=== PATIENT | female | born 1960 | race Two or more races ===

== ENCOUNTER 2016-06-18 10:59 | Inpatient (IN) | payer OTHER ==
[2016-06-18 11:51] VITALS: BMI 35.6
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
[2016-06-18] MEDS ORDERED: MAGNESIUM HYDROX 2400MG/30ML ORAL SUSPENSION 30 ML CUP PO PRN (15:20)
[2016-06-18] MEDS ORDERED: P-EPHED 60MG/TRIPROLIDI 2.5MG TABLET PO PRN (15:20)
[2016-06-18] MEDS ORDERED: IBUPROFEN 400 MG TABLET (FP) PO PRN (15:20)
[2016-06-18] MEDS ORDERED: LOPERAMIDE HCL 2 MG CAPSULE PO PRN (15:20)
[2016-06-18] MEDS ORDERED: MAGNESIUM CITRATE 300 ML BOTTLE PO PRN (15:20)
[2016-06-18] MEDS ORDERED: hydrOXYzine PAMOATE 25 MG CAPSULE (FP) PO PRN (15:20)
[2016-06-18] MEDS ORDERED: MAG HYDROX/AL HYDROX/SIMETH 30 ML UNIT-DOSE CUP PO PRN (15:20)
[2016-06-18] MEDS ORDERED: MENTHOL/PHENOL 1 EACH UD MM PRN (15:20)
[2016-06-18] MEDS ORDERED: guaiFENesin/D-METHORPHAN HB 10 ML UNIT-DOSE CUPS PO PRN (15:20)
[2016-06-18] MEDS ORDERED: diphenhydrAMINE HCL 50 MG CAPSULE PO PRN (15:20)
[2016-06-18] MEDS ORDERED: ALBUTEROL SO4 6.7 GM HFA INHALER IH PRN (15:22)
[2016-06-18] MEDS ORDERED: METHADONE HCL 10 MG TABLET PO ONE (15:23)
[2016-06-18] MEDS ORDERED: METHADONE 80 MG, METHADONE 30 MG PO ONE (16:00)
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
[2016-06-18] MEDS: LISINOPRIL 20 MG TABLET (FP) PO SCH (17:25)
[2016-06-18] MEDS: THIAMINE HCL 100 MG TABLET (FP) PO SCH (21:41)
[2016-06-18] MEDS: NICOTINE 14 MG/24 HOURS TOPICAL PATCH TD SCH (21:42)
[2016-06-18] MEDS: QUEtiapine FUMARATE 400 MG TABLET PO SCH (22:35)
[2016-06-19] MEDS ORDERED: METHADONE HCL 40 MG DISPERSABLE TABLET ONE (05:14)
[2016-06-19] MEDS ORDERED: METHADONE HCL 10 MG TABLET ONE (05:14)
[2016-06-19] MEDS ORDERED: METHADONE HCL 10 MG TABLET PO SCH (06:00)
[2016-06-19] MEDS: METHADONE 80 MG, METHADONE 30 MG PO SCH (06:17)
[2016-06-19 09:57] LABS: MCH 29.1 pg (25.7-33.7); MCHC 32.7 g/dl (32.0-36.0); MEAN CELL VOLUME 88.9 fl (80-96); MEAN PLT VOLUME 10.2 fl (7.5-11.1); PLATELET COUNT 187 K/MM3 (134-434); RDW 15.9 % (11.6-15.6); WHITE BLOOD COUNT 7.6 K/mm3 (4.0-10.0)
[2016-06-19] MEDS: NICOTINE 14 MG/24 HOURS TOPICAL PATCH TD SCH (10:17)
[2016-06-19] MEDS: QUEtiapine FUMARATE 400 MG TABLET PO SCH ×2 (10:17→21:21)
[2016-06-19] MEDS: LISINOPRIL 20 MG TABLET (FP) PO SCH (10:17)
[2016-06-19] MEDS: PRENATAL VITAMINS W/ FOLIC ACID TABLET (FP) PO SCH (10:17)
[2016-06-19 10:37] LABS: ALBUMIN 3.3 g/dl (3.4-5.0); BILIRUBIN,TOTAL 0.2 mg/dL (0.2-1.0); CALCIUM 8.7 mg/dL (8.5-10.1); CREATININE 1.4 mg/dL (0.55-1.02); TOT PROT 6.6 g/dl (6.4-8.2)
[2016-06-19 15:29] LABS: SICKLE CELL SCREEN NEGATIVE (NEGATIVE)
[2016-06-19] MEDS: ACETAMINOPHEN 325 MG TABLET (FP) PO PRN (19:52)
[2016-06-19] MEDS: THIAMINE HCL 100 MG TABLET (FP) PO SCH (21:21)
--- NOTE | 2016-06-19 23:39 | EKG ---
Test Reason : Blood Pressure : / mmHG Vent. Rate : 077 BPM Atrial Rate : 077 BPM P-R Int : 124 ms QRS Dur : 076 ms QT Int : 432 ms P-R-T Axes : 050 -01 034 degrees QTc Int : 488 ms NORMAL SINUS RHYTHM POSSIBLE LEFT ATRIAL ENLARGEMENT CANNOT RULE OUT ANTERIOR INFARCT , AGE UNDETERMINED ABNORMAL ECG WHEN COMPARED WITH ECG OF 18-MAY-2004 06:53, NO SIGNIFICANT CHANGE WAS FOUND Confirmed by JAY PAEZ, MCKENZIE ([id number]) on 06/19/2016 11:38:39 PM Referred By: Confirmed By:MCKENZIE THOMPSON MD
[2016-06-20] MEDS ORDERED: METHADONE HCL 10 MG TABLET ONE (03:19)
[2016-06-20] MEDS ORDERED: METHADONE HCL 40 MG DISPERSABLE TABLET ONE (03:19)
[2016-06-20] MEDS: METHADONE 80 MG, METHADONE 30 MG PO SCH (07:10)
[2016-06-20] MEDS: PRENATAL VITAMINS W/ FOLIC ACID TABLET (FP) PO SCH (10:24)
[2016-06-20] MEDS: LISINOPRIL 20 MG TABLET (FP) PO SCH (10:24)
[2016-06-20] MEDS: QUEtiapine FUMARATE 400 MG TABLET PO SCH ×2 (10:24→21:41)
[2016-06-20] MEDS: NICOTINE 14 MG/24 HOURS TOPICAL PATCH TD SCH (10:25)
[2016-06-20] MEDS: TRIAMTERENE AND HCTZ - 37.5 MG/25 MG CAPSULE PO SCH (15:21)
[2016-06-20] MEDS: THIAMINE HCL 100 MG TABLET (FP) PO SCH (21:41)
[2016-06-21] MEDS ORDERED: METHADONE HCL 40 MG DISPERSABLE TABLET ONE (03:18)
[2016-06-21] MEDS ORDERED: METHADONE HCL 10 MG TABLET ONE (03:18)
[2016-06-21] MEDS: METHADONE 80 MG, METHADONE 30 MG PO SCH (06:53)
[2016-06-21] MEDS ORDERED: PT OWN MED DRAWER 7, Y5N ONE (08:56)
[2016-06-21 09:56] LABS: URINE APPEARANCE TURBID; URINE BILIRUBIN NEGATIVE (NEGATIVE); URINE BLOOD NEGATIVE (NEGATIVE); URINE COLOR YELLOW; URINE GLUCOSE (UA) NEGATIVE (NEGATIVE); URINE KETONE NEGATIVE (NEGATIVE); URINE NITRITE POSITIVE (NEGATIVE); URINE PROTEIN NEGATIVE (NEGATIVE); URINE UROBILINOGEN NEGATIVE E.U./dl (0.2-1.0)
[2016-06-21 10:00] LABS: URINE LEUK ESTERASE 3+ (NEGATIVE)
[2016-06-21 10:04] LABS: URINE BACTERIA MODERATE /hpf (NONE SEEN); URINE MUCUS RARE; URINE RBC 3 /hpf (0-3); URINE WBC 3192 /hpf (3-5)
[2016-06-21] MEDS: TRIAMTERENE AND HCTZ - 37.5 MG/25 MG CAPSULE PO SCH (10:37)
[2016-06-21] MEDS: PRENATAL VITAMINS W/ FOLIC ACID TABLET (FP) PO SCH (10:37)
[2016-06-21] MEDS: NICOTINE 14 MG/24 HOURS TOPICAL PATCH TD SCH (10:37)
[2016-06-21] MEDS: LISINOPRIL 20 MG TABLET (FP) PO SCH (10:37)
[2016-06-21] MEDS: THIAMINE HCL 100 MG TABLET (FP) PO SCH (21:35)
[2016-06-21] MEDS: QUEtiapine FUMARATE 400 MG TABLET PO SCH (21:35)
[2016-06-22] MEDS ORDERED: METHADONE HCL 10 MG TABLET ONE (05:59)
[2016-06-22] MEDS ORDERED: METHADONE HCL 40 MG DISPERSABLE TABLET ONE (06:00)
[2016-06-22] MEDS: METHADONE 80 MG, METHADONE 30 MG PO SCH (06:54)
[2016-06-22] MEDS ORDERED: PT OWN MED DRAWER 7, Y5N ONE (09:03)
[2016-06-22] MEDS: PRENATAL VITAMINS W/ FOLIC ACID TABLET (FP) PO SCH (10:29)
[2016-06-22] MEDS: TRIAMTERENE AND HCTZ - 37.5 MG/25 MG CAPSULE PO SCH (10:29)
[2016-06-22] MEDS: NICOTINE 14 MG/24 HOURS TOPICAL PATCH TD SCH (10:30)
[2016-06-22] MEDS: LISINOPRIL 20 MG TABLET (FP) PO SCH (10:30)
[2016-06-22] MEDS: ACETAMINOPHEN 325 MG TABLET (FP) PO PRN (15:34)
[2016-06-22] MEDS: THIAMINE HCL 100 MG TABLET (FP) PO SCH (21:36)
[2016-06-22] MEDS: QUEtiapine FUMARATE 400 MG TABLET PO SCH (21:37)
[2016-06-23] MEDS ORDERED: METHADONE HCL 10 MG TABLET ONE (03:24)
[2016-06-23] MEDS ORDERED: METHADONE HCL 40 MG DISPERSABLE TABLET ONE (03:24)
[2016-06-23] MEDS: METHADONE 80 MG, METHADONE 30 MG PO SCH (06:30)
[2016-06-23] MEDS ORDERED: PT OWN MED DRAWER 7, Y5N ONE (09:03)
[2016-06-23] MEDS: LISINOPRIL 20 MG TABLET (FP) PO SCH (10:12)
[2016-06-23] MEDS: PRENATAL VITAMINS W/ FOLIC ACID TABLET (FP) PO SCH (10:12)
[2016-06-23] MEDS: NICOTINE 14 MG/24 HOURS TOPICAL PATCH TD SCH (10:13)
[2016-06-23] MEDS: TRIAMTERENE AND HCTZ - 37.5 MG/25 MG CAPSULE PO SCH (10:13)
[2016-06-23] MEDS: QUEtiapine FUMARATE 400 MG TABLET PO SCH (21:27)
[2016-06-23] MEDS: THIAMINE HCL 100 MG TABLET (FP) PO SCH (21:27)
[2016-06-24] MEDS ORDERED: METHADONE HCL 10 MG TABLET ONE (03:25)
[2016-06-24] MEDS ORDERED: METHADONE HCL 40 MG DISPERSABLE TABLET ONE (03:26)
[2016-06-24] MEDS: METHADONE 80 MG, METHADONE 30 MG PO SCH (06:23)
[2016-06-24] MEDS: TRIAMTERENE AND HCTZ - 37.5 MG/25 MG CAPSULE PO SCH (10:11)
[2016-06-24] MEDS: LISINOPRIL 20 MG TABLET (FP) PO SCH (10:11)
[2016-06-24] MEDS: PRENATAL VITAMINS W/ FOLIC ACID TABLET (FP) PO SCH (10:11)
[2016-06-24] MEDS: NICOTINE 14 MG/24 HOURS TOPICAL PATCH TD SCH (10:11)
[2016-06-24] MEDS: QUEtiapine FUMARATE 400 MG TABLET PO SCH (21:25)
[2016-06-24] MEDS: THIAMINE HCL 100 MG TABLET (FP) PO SCH (21:25)
[2016-06-25] MEDS ORDERED: METHADONE HCL 10 MG TABLET ONE (03:16)
[2016-06-25] MEDS ORDERED: METHADONE HCL 40 MG DISPERSABLE TABLET ONE (03:16)
[2016-06-25] MEDS: METHADONE 80 MG, METHADONE 30 MG PO SCH (06:44)
[2016-06-25] MEDS: LISINOPRIL 20 MG TABLET (FP) PO SCH (09:56)
[2016-06-25] MEDS: PRENATAL VITAMINS W/ FOLIC ACID TABLET (FP) PO SCH (09:56)
[2016-06-25] MEDS: NICOTINE 14 MG/24 HOURS TOPICAL PATCH TD SCH (09:57)
[2016-06-25] MEDS: TRIAMTERENE AND HCTZ - 37.5 MG/25 MG CAPSULE PO SCH (09:57)
[2016-06-25] MEDS: QUEtiapine FUMARATE 400 MG TABLET PO SCH (21:23)
[2016-06-25] MEDS: THIAMINE HCL 100 MG TABLET (FP) PO SCH (21:23)
[2016-06-26] MEDS ORDERED: METHADONE HCL 40 MG DISPERSABLE TABLET ONE (05:52)
[2016-06-26] MEDS ORDERED: METHADONE HCL 10 MG TABLET ONE (05:52)
[2016-06-26] MEDS: METHADONE 80 MG, METHADONE 30 MG PO SCH (06:03)
[2016-06-26] MEDS ORDERED: PT OWN MED DRAWER 7, Y5N ONE (08:56)
[2016-06-26] MEDS: TRIAMTERENE AND HCTZ - 37.5 MG/25 MG CAPSULE PO SCH (10:13)
[2016-06-26] MEDS: PRENATAL VITAMINS W/ FOLIC ACID TABLET (FP) PO SCH (10:13)
[2016-06-26] MEDS: NICOTINE 14 MG/24 HOURS TOPICAL PATCH TD SCH (10:13)
[2016-06-26] MEDS: LISINOPRIL 20 MG TABLET (FP) PO SCH (10:13)
[2016-06-26] MEDS: THIAMINE HCL 100 MG TABLET (FP) PO SCH (21:12)
[2016-06-26] MEDS: QUEtiapine FUMARATE 400 MG TABLET PO SCH (21:12)
[2016-06-27] MEDS ORDERED: METHADONE HCL 40 MG DISPERSABLE TABLET ONE (06:17)
[2016-06-27] MEDS ORDERED: METHADONE HCL 10 MG TABLET ONE (06:17)
[2016-06-27] MEDS: METHADONE 80 MG, METHADONE 30 MG PO SCH (06:46)
[2016-06-27] MEDS ORDERED: PT OWN MED DRAWER 7, Y5N ONE (09:04)
[2016-06-27] MEDS: PRENATAL VITAMINS W/ FOLIC ACID TABLET (FP) PO SCH (10:20)
[2016-06-27] MEDS: LISINOPRIL 20 MG TABLET (FP) PO SCH (10:20)
[2016-06-27] MEDS: TRIAMTERENE AND HCTZ - 37.5 MG/25 MG CAPSULE PO SCH (10:20)
[2016-06-27] MEDS: NICOTINE 14 MG/24 HOURS TOPICAL PATCH TD SCH (10:20)
[2016-06-27] MEDS: NICOTINE POLACRILEX 2 MG GUM BC PRN (10:22)
[2016-06-27] MEDS: THIAMINE HCL 100 MG TABLET (FP) PO SCH (22:24)
[2016-06-27] MEDS: QUEtiapine FUMARATE 400 MG TABLET PO SCH (22:24)
[2016-06-28] MEDS ORDERED: METHADONE HCL 40 MG DISPERSABLE TABLET ONE (03:27)
[2016-06-28] MEDS ORDERED: METHADONE HCL 10 MG TABLET ONE (03:27)
[2016-06-28] MEDS: METHADONE 80 MG, METHADONE 30 MG PO SCH (06:31)
[2016-06-28] MEDS ORDERED: PT OWN MED DRAWER 7, Y5N ONE (08:50)
[2016-06-28] MEDS: PRENATAL VITAMINS W/ FOLIC ACID TABLET (FP) PO SCH (10:33)
[2016-06-28] MEDS: TRIAMTERENE AND HCTZ - 37.5 MG/25 MG CAPSULE PO SCH (10:33)
[2016-06-28] MEDS: LISINOPRIL 20 MG TABLET (FP) PO SCH (10:33)
[2016-06-28] MEDS: NICOTINE 14 MG/24 HOURS TOPICAL PATCH TD SCH (10:33)
[2016-06-28] MEDS: NICOTINE POLACRILEX 2 MG GUM BC PRN (10:35)
[2016-06-28] MEDS: QUEtiapine FUMARATE 400 MG TABLET PO SCH (21:25)
[2016-06-28] MEDS: THIAMINE HCL 100 MG TABLET (FP) PO SCH (21:25)
[2016-06-29] MEDS ORDERED: METHADONE HCL 10 MG TABLET ONE (03:52)
[2016-06-29] MEDS ORDERED: METHADONE HCL 40 MG DISPERSABLE TABLET ONE (03:52)
[2016-06-29] MEDS: METHADONE 80 MG, METHADONE 30 MG PO SCH (06:28)
[2016-06-29] MEDS ORDERED: PT OWN MED DRAWER 7, Y5N ONE (08:22)
[2016-06-29] MEDS: PRENATAL VITAMINS W/ FOLIC ACID TABLET (FP) PO SCH (10:14)
[2016-06-29] MEDS: LISINOPRIL 20 MG TABLET (FP) PO SCH (10:14)
[2016-06-29] MEDS: TRIAMTERENE AND HCTZ - 37.5 MG/25 MG CAPSULE PO SCH (10:14)
[2016-06-29] MEDS: NICOTINE 14 MG/24 HOURS TOPICAL PATCH TD SCH (10:14)
[2016-06-29] MEDS: NICOTINE POLACRILEX 2 MG GUM BC PRN (10:15)
[2016-06-29] MEDS: THIAMINE HCL 100 MG TABLET (FP) PO SCH (21:42)
[2016-06-29] MEDS: QUEtiapine FUMARATE 400 MG TABLET PO SCH (21:42)
[2016-06-30] MEDS ORDERED: METHADONE HCL 10 MG TABLET ONE (06:00)
[2016-06-30] MEDS ORDERED: METHADONE HCL 40 MG DISPERSABLE TABLET ONE (06:00)
[2016-06-30] MEDS: METHADONE 80 MG, METHADONE 30 MG PO SCH (06:43)
[2016-06-30] MEDS ORDERED: PT OWN MED DRAWER 7, Y5N ONE (08:51)
[2016-06-30] MEDS: TRIAMTERENE AND HCTZ - 37.5 MG/25 MG CAPSULE PO SCH (10:28)
[2016-06-30] MEDS: LISINOPRIL 20 MG TABLET (FP) PO SCH (10:28)
[2016-06-30] MEDS: PRENATAL VITAMINS W/ FOLIC ACID TABLET (FP) PO SCH (10:28)
[2016-06-30] MEDS: NICOTINE 14 MG/24 HOURS TOPICAL PATCH TD SCH (10:29)
[2016-06-30] MEDS: NICOTINE POLACRILEX 2 MG GUM BC PRN (10:30)
[2016-06-30] MEDS: QUEtiapine FUMARATE 400 MG TABLET PO SCH (21:38)
[2016-06-30] MEDS: THIAMINE HCL 100 MG TABLET (FP) PO SCH (21:38)
[2016-07-01] MEDS ORDERED: METHADONE HCL 40 MG DISPERSABLE TABLET ONE (06:01)
[2016-07-01] MEDS ORDERED: METHADONE HCL 10 MG TABLET ONE (06:01)
[2016-07-01] MEDS: METHADONE 80 MG, METHADONE 30 MG PO SCH (06:49)
[2016-07-01] MEDS ORDERED: PT OWN MED DRAWER 7, Y5N ONE (08:56)
[2016-07-01] MEDS: NICOTINE 14 MG/24 HOURS TOPICAL PATCH TD SCH (10:27)
[2016-07-01] MEDS: PRENATAL VITAMINS W/ FOLIC ACID TABLET (FP) PO SCH (10:27)
[2016-07-01] MEDS: NICOTINE POLACRILEX 2 MG GUM BC PRN (10:29)
[2016-07-01] MEDS: LISINOPRIL 20 MG TABLET (FP) PO SCH (10:29)
[2016-07-01] MEDS: TRIAMTERENE AND HCTZ - 37.5 MG/25 MG CAPSULE PO SCH (10:29)
[2016-07-01] MEDS: QUEtiapine FUMARATE 400 MG TABLET PO SCH (21:38)
[2016-07-01] MEDS: THIAMINE HCL 100 MG TABLET (FP) PO SCH (21:38)
[2016-07-02] MEDS ORDERED: METHADONE HCL 10 MG TABLET ONE (05:45)
[2016-07-02] MEDS ORDERED: METHADONE HCL 40 MG DISPERSABLE TABLET ONE (05:45)
[2016-07-02] MEDS: METHADONE 80 MG, METHADONE 30 MG PO SCH (06:32)
[2016-07-02] MEDS ORDERED: PT OWN MED DRAWER 7, Y5N ONE (09:08)
[2016-07-02] MEDS: LISINOPRIL 20 MG TABLET (FP) PO SCH (10:27)
[2016-07-02] MEDS: NICOTINE 14 MG/24 HOURS TOPICAL PATCH TD SCH (10:27)
[2016-07-02] MEDS: PRENATAL VITAMINS W/ FOLIC ACID TABLET (FP) PO SCH (10:27)
[2016-07-02] MEDS: TRIAMTERENE AND HCTZ - 37.5 MG/25 MG CAPSULE PO SCH (10:27)
[2016-07-02] MEDS: QUEtiapine FUMARATE 400 MG TABLET PO SCH (21:36)
[2016-07-02] MEDS: THIAMINE HCL 100 MG TABLET (FP) PO SCH (21:37)
[2016-07-03] MEDS ORDERED: METHADONE HCL 10 MG TABLET ONE (05:11)
[2016-07-03] MEDS ORDERED: METHADONE HCL 40 MG DISPERSABLE TABLET ONE (05:12)
[2016-07-03] MEDS: METHADONE 80 MG, METHADONE 30 MG PO SCH (06:24)
[2016-07-03] MEDS: TRIAMTERENE AND HCTZ - 37.5 MG/25 MG CAPSULE PO SCH (10:30)
[2016-07-03] MEDS: LISINOPRIL 20 MG TABLET (FP) PO SCH (10:30)
[2016-07-03] MEDS: PRENATAL VITAMINS W/ FOLIC ACID TABLET (FP) PO SCH (10:31)
[2016-07-03] MEDS: NICOTINE 14 MG/24 HOURS TOPICAL PATCH TD SCH (10:31)
[2016-07-03] MEDS: NICOTINE POLACRILEX 2 MG GUM BC PRN (10:32)
[2016-07-03] MEDS: QUEtiapine FUMARATE 400 MG TABLET PO SCH (21:09)
[2016-07-03] MEDS: THIAMINE HCL 100 MG TABLET (FP) PO SCH (21:09)
[2016-07-04] MEDS ORDERED: METHADONE HCL 10 MG TABLET PO SCH (06:00)
[2016-07-04] MEDS ORDERED: METHADONE HCL 40 MG DISPERSABLE TABLET ONE (06:01)
[2016-07-04] MEDS ORDERED: METHADONE HCL 10 MG TABLET ONE (06:01)
[2016-07-04] MEDS: METHADONE 80 MG, METHADONE 30 MG PO SCH (06:33)
[2016-07-04] MEDS: PRENATAL VITAMINS W/ FOLIC ACID TABLET (FP) PO SCH (10:34)
[2016-07-04] MEDS: TRIAMTERENE AND HCTZ - 37.5 MG/25 MG CAPSULE PO SCH (10:35)
[2016-07-04] MEDS: LISINOPRIL 20 MG TABLET (FP) PO SCH (10:35)
[2016-07-04] MEDS: NICOTINE 14 MG/24 HOURS TOPICAL PATCH TD SCH (10:35)
[2016-07-04] MEDS: NICOTINE POLACRILEX 2 MG GUM BC PRN (10:37)
[2016-07-04] MEDS: QUEtiapine FUMARATE 400 MG TABLET PO SCH (21:29)
[2016-07-04] MEDS: THIAMINE HCL 100 MG TABLET (FP) PO SCH (21:30)
[2016-07-05] MEDS ORDERED: METHADONE HCL 40 MG DISPERSABLE TABLET ONE (03:47)
[2016-07-05] MEDS ORDERED: METHADONE HCL 10 MG TABLET ONE (03:47)
[2016-07-05] MEDS: METHADONE 80 MG, METHADONE 30 MG PO SCH (06:32)
[2016-07-05] MEDS ORDERED: PT OWN MED DRAWER 7, Y5N ONE (08:48)
[2016-07-05] MEDS: TRIAMTERENE AND HCTZ - 37.5 MG/25 MG CAPSULE PO SCH (10:36)
[2016-07-05] MEDS: PRENATAL VITAMINS W/ FOLIC ACID TABLET (FP) PO SCH (10:36)
[2016-07-05] MEDS: LISINOPRIL 20 MG TABLET (FP) PO SCH (10:36)
[2016-07-05] MEDS: NICOTINE 14 MG/24 HOURS TOPICAL PATCH TD SCH (10:37)
[2016-07-05] MEDS: NICOTINE POLACRILEX 2 MG GUM BC PRN (10:37)
[2016-07-05] MEDS: QUEtiapine FUMARATE 400 MG TABLET PO SCH (21:27)
[2016-07-05] MEDS: THIAMINE HCL 100 MG TABLET (FP) PO SCH (21:27)
[2016-07-06] MEDS ORDERED: METHADONE HCL 10 MG TABLET ONE (05:53)
[2016-07-06] MEDS ORDERED: METHADONE HCL 40 MG DISPERSABLE TABLET ONE (05:53)
[2016-07-06] MEDS: METHADONE 80 MG, METHADONE 30 MG PO SCH (06:33)
[2016-07-06] MEDS ORDERED: PT OWN MED DRAWER 7, Y5N ONE (08:37)
[2016-07-06] MEDS: TRIAMTERENE AND HCTZ - 37.5 MG/25 MG CAPSULE PO SCH (10:13)
[2016-07-06] MEDS: LISINOPRIL 20 MG TABLET (FP) PO SCH (10:13)
[2016-07-06] MEDS: PRENATAL VITAMINS W/ FOLIC ACID TABLET (FP) PO SCH (10:13)
[2016-07-06] MEDS: NICOTINE 14 MG/24 HOURS TOPICAL PATCH TD SCH (10:13)
[2016-07-06] MEDS: NICOTINE POLACRILEX 2 MG GUM BC PRN (10:14)
[2016-07-06] MEDS: THIAMINE HCL 100 MG TABLET (FP) PO SCH (21:37)
[2016-07-06] MEDS: QUEtiapine FUMARATE 400 MG TABLET PO SCH (21:37)
[2016-07-07] MEDS ORDERED: METHADONE HCL 40 MG DISPERSABLE TABLET ONE (03:16)
[2016-07-07] MEDS ORDERED: METHADONE HCL 10 MG TABLET ONE (03:16)
[2016-07-07] MEDS: METHADONE 80 MG, METHADONE 30 MG PO SCH (06:21)
[2016-07-07] MEDS ORDERED: PT OWN MED DRAWER 7, Y5N ONE (08:18)
[2016-07-07] MEDS: PRENATAL VITAMINS W/ FOLIC ACID TABLET (FP) PO SCH (10:21)
[2016-07-07] MEDS: NICOTINE 14 MG/24 HOURS TOPICAL PATCH TD SCH (10:21)
[2016-07-07] MEDS: LISINOPRIL 20 MG TABLET (FP) PO SCH (10:21)
[2016-07-07] MEDS: TRIAMTERENE AND HCTZ - 37.5 MG/25 MG CAPSULE PO SCH (10:21)
[2016-07-07] MEDS: NICOTINE POLACRILEX 2 MG GUM BC PRN (10:22)
[2016-07-07] MEDS: THIAMINE HCL 100 MG TABLET (FP) PO SCH (21:38)
[2016-07-07] MEDS: QUEtiapine FUMARATE 400 MG TABLET PO SCH (21:38)
[2016-07-08] MEDS ORDERED: METHADONE HCL 10 MG TABLET ONE (03:18)
[2016-07-08] MEDS ORDERED: METHADONE HCL 40 MG DISPERSABLE TABLET ONE (03:18)
[2016-07-08] MEDS: METHADONE 80 MG, METHADONE 30 MG PO SCH (06:11)
[2016-07-08] MEDS ORDERED: PT OWN MED DRAWER 7, Y5N ONE (08:26)
[2016-07-08] MEDS: NICOTINE 14 MG/24 HOURS TOPICAL PATCH TD SCH (10:18)
[2016-07-08] MEDS: LISINOPRIL 20 MG TABLET (FP) PO SCH (10:18)
[2016-07-08] MEDS: PRENATAL VITAMINS W/ FOLIC ACID TABLET (FP) PO SCH (10:18)
[2016-07-08] MEDS: TRIAMTERENE AND HCTZ - 37.5 MG/25 MG CAPSULE PO SCH (10:18)
[2016-07-08] MEDS: NICOTINE POLACRILEX 2 MG GUM BC PRN (10:19)
[2016-07-08] MEDS: QUEtiapine FUMARATE 400 MG TABLET PO SCH (21:46)
[2016-07-08] MEDS: THIAMINE HCL 100 MG TABLET (FP) PO SCH (21:46)
[2016-07-09] MEDS ORDERED: METHADONE HCL 10 MG TABLET ONE (03:31)
[2016-07-09] MEDS ORDERED: METHADONE HCL 40 MG DISPERSABLE TABLET ONE (03:31)
[2016-07-09] MEDS: METHADONE 80 MG, METHADONE 30 MG PO SCH (06:21)
[2016-07-09] MEDS ORDERED: PT OWN MED DRAWER 7, Y5N ONE (08:42)
[2016-07-09] MEDS: NICOTINE 14 MG/24 HOURS TOPICAL PATCH TD SCH (10:24)
[2016-07-09] MEDS: PRENATAL VITAMINS W/ FOLIC ACID TABLET (FP) PO SCH (10:24)
[2016-07-09] MEDS: TRIAMTERENE AND HCTZ - 37.5 MG/25 MG CAPSULE PO SCH (10:24)
[2016-07-09] MEDS: LISINOPRIL 20 MG TABLET (FP) PO SCH (10:24)
[2016-07-09] MEDS: NICOTINE POLACRILEX 2 MG GUM BC PRN (10:26)
[2016-07-09] MEDS: QUEtiapine FUMARATE 400 MG TABLET PO SCH (21:33)
[2016-07-09] MEDS: THIAMINE HCL 100 MG TABLET (FP) PO SCH (21:33)
[2016-07-10] MEDS ORDERED: METHADONE HCL 10 MG TABLET ONE (05:55)
[2016-07-10] MEDS ORDERED: METHADONE HCL 40 MG DISPERSABLE TABLET ONE (05:55)
[2016-07-10] MEDS ORDERED: METHADONE HCL 10 MG TABLET PO SCH (06:00)
[2016-07-10] MEDS: METHADONE 80 MG, METHADONE 30 MG PO SCH (06:13)
[2016-07-10] MEDS ORDERED: PT OWN MED DRAWER 7, Y5N ONE (08:58)
[2016-07-10] MEDS: NICOTINE 14 MG/24 HOURS TOPICAL PATCH TD SCH (10:15)
[2016-07-10] MEDS: PRENATAL VITAMINS W/ FOLIC ACID TABLET (FP) PO SCH (10:15)
[2016-07-10] MEDS: TRIAMTERENE AND HCTZ - 37.5 MG/25 MG CAPSULE PO SCH (10:15)
[2016-07-10] MEDS: NICOTINE POLACRILEX 2 MG GUM BC PRN (10:16)
[2016-07-10] MEDS: LISINOPRIL 20 MG TABLET (FP) PO SCH (10:16)
[2016-07-10] MEDS: QUEtiapine FUMARATE 400 MG TABLET PO SCH (21:26)
[2016-07-10] MEDS: THIAMINE HCL 100 MG TABLET (FP) PO SCH (21:26)
[2016-07-11] MEDS ORDERED: METHADONE HCL 10 MG TABLET ONE (03:18)
[2016-07-11] MEDS ORDERED: METHADONE HCL 40 MG DISPERSABLE TABLET ONE (03:18)
[2016-07-11] MEDS: METHADONE 80 MG, METHADONE 30 MG PO SCH (06:17)
[2016-07-11] MEDS ORDERED: PT OWN MED DRAWER 7, Y5N ONE (09:17)
[2016-07-11] MEDS: PRENATAL VITAMINS W/ FOLIC ACID TABLET (FP) PO SCH (10:10)
[2016-07-11] MEDS: LISINOPRIL 20 MG TABLET (FP) PO SCH (10:10)
[2016-07-11] MEDS: TRIAMTERENE AND HCTZ - 37.5 MG/25 MG CAPSULE PO SCH (10:10)
[2016-07-11] MEDS: NICOTINE 14 MG/24 HOURS TOPICAL PATCH TD SCH (10:11)
[2016-07-11] MEDS: NICOTINE POLACRILEX 2 MG GUM BC PRN (10:12)
[2016-07-11] MEDS: QUEtiapine FUMARATE 400 MG TABLET PO SCH (21:26)
[2016-07-11] MEDS: THIAMINE HCL 100 MG TABLET (FP) PO SCH (21:26)
[2016-07-12] MEDS ORDERED: METHADONE HCL 10 MG TABLET ONE (03:06)
[2016-07-12] MEDS ORDERED: METHADONE HCL 40 MG DISPERSABLE TABLET ONE (03:06)
[2016-07-12] MEDS: METHADONE 80 MG, METHADONE 30 MG PO SCH (06:26)
[2016-07-12] MEDS: LISINOPRIL 20 MG TABLET (FP) PO SCH (10:34)
[2016-07-12] MEDS: PRENATAL VITAMINS W/ FOLIC ACID TABLET (FP) PO SCH (10:34)
[2016-07-12] MEDS: NICOTINE POLACRILEX 2 MG GUM BC PRN (10:35)
[2016-07-12] MEDS: TRIAMTERENE AND HCTZ - 37.5 MG/25 MG CAPSULE PO SCH (10:35)
[2016-07-12] MEDS: NICOTINE 14 MG/24 HOURS TOPICAL PATCH TD SCH (10:35)
[2016-07-12] MEDS: QUEtiapine FUMARATE 400 MG TABLET PO SCH (21:25)
[2016-07-12] MEDS: THIAMINE HCL 100 MG TABLET (FP) PO SCH (21:26)
[2016-07-13] MEDS ORDERED: METHADONE HCL 10 MG TABLET ONE (03:18)
[2016-07-13] MEDS ORDERED: METHADONE HCL 40 MG DISPERSABLE TABLET ONE (03:19)
[2016-07-13] MEDS: METHADONE 80 MG, METHADONE 30 MG PO SCH (06:13)
[2016-07-13] MEDS ORDERED: PT OWN MED DRAWER 7, Y5N ONE (08:53)
[2016-07-13] MEDS: NICOTINE 14 MG/24 HOURS TOPICAL PATCH TD SCH (10:16)
[2016-07-13] MEDS: TRIAMTERENE AND HCTZ - 37.5 MG/25 MG CAPSULE PO SCH (10:16)
[2016-07-13] MEDS: LISINOPRIL 20 MG TABLET (FP) PO SCH (10:16)
[2016-07-13] MEDS: PRENATAL VITAMINS W/ FOLIC ACID TABLET (FP) PO SCH (10:16)
[2016-07-13] MEDS: NICOTINE POLACRILEX 2 MG GUM BC PRN (10:17)
[2016-07-13] MEDS: QUEtiapine FUMARATE 400 MG TABLET PO SCH (21:27)
[2016-07-13] MEDS: THIAMINE HCL 100 MG TABLET (FP) PO SCH (21:27)
[2016-07-14] MEDS ORDERED: METHADONE HCL 40 MG DISPERSABLE TABLET ONE (05:18)
[2016-07-14] MEDS ORDERED: METHADONE HCL 10 MG TABLET ONE (05:18)
[2016-07-14] MEDS: METHADONE 80 MG, METHADONE 30 MG PO SCH (06:28)
[2016-07-14] MEDS ORDERED: PT OWN MED DRAWER 7, Y5N ONE (08:53)
[2016-07-14] MEDS: NICOTINE POLACRILEX 2 MG GUM BC PRN (10:04)
[2016-07-14] MEDS: LISINOPRIL 20 MG TABLET (FP) PO SCH (10:05)
[2016-07-14] MEDS: NICOTINE 14 MG/24 HOURS TOPICAL PATCH TD SCH (10:05)
[2016-07-14] MEDS: PRENATAL VITAMINS W/ FOLIC ACID TABLET (FP) PO SCH (10:05)
[2016-07-14] MEDS: TRIAMTERENE AND HCTZ - 37.5 MG/25 MG CAPSULE PO SCH (10:05)
[2016-07-14] MEDS: THIAMINE HCL 100 MG TABLET (FP) PO SCH (21:25)
[2016-07-14] MEDS: QUEtiapine FUMARATE 400 MG TABLET PO SCH (21:25)
[2016-07-15] MEDS ORDERED: METHADONE HCL 40 MG DISPERSABLE TABLET ONE (03:44)
[2016-07-15] MEDS ORDERED: METHADONE HCL 10 MG TABLET ONE (03:44)
[2016-07-15] MEDS: METHADONE 80 MG, METHADONE 30 MG PO SCH (06:31)
[2016-07-15] MEDS ORDERED: PT OWN MED DRAWER 7, Y5N ONE (09:06)
[2016-07-15] MEDS: PRENATAL VITAMINS W/ FOLIC ACID TABLET (FP) PO SCH (10:09)
[2016-07-15] MEDS: NICOTINE 14 MG/24 HOURS TOPICAL PATCH TD SCH (10:10)
[2016-07-15] MEDS: TRIAMTERENE AND HCTZ - 37.5 MG/25 MG CAPSULE PO SCH (10:10)
[2016-07-15] MEDS: NICOTINE POLACRILEX 2 MG GUM BC PRN (10:10)
[2016-07-15] MEDS: LISINOPRIL 20 MG TABLET (FP) PO SCH (10:10)
[2016-07-15] MEDS: QUEtiapine FUMARATE 400 MG TABLET PO SCH (21:30)
[2016-07-15] MEDS: THIAMINE HCL 100 MG TABLET (FP) PO SCH (21:30)
[2016-07-16] MEDS ORDERED: METHADONE 80 MG, METHADONE 30 MG PO SCH (06:00)
[2016-07-16] MEDS ORDERED: METHADONE HCL 10 MG TABLET ONE (06:05)
[2016-07-16] MEDS ORDERED: METHADONE HCL 40 MG DISPERSABLE TABLET ONE (06:05)
[2016-07-16 06:50] VITALS: TEMP 97.2
[2016-07-16] MEDS ORDERED: PT OWN MED DRAWER 7, Y5N ONE (08:43)
[2016-07-16 09:40] VITALS: BP 112/73; PULSE 108
--- NOTE | 2016-07-16 10:02 | PN ---
Psychiatric Progress Note Vital Signs: Vital Signs Period Temp Pulse Resp BP Sys/Heck Pulse Ox Last 24 Hr 97.2 F 78-108 18-19 112-129/73-85 Date of Session: 07/16/16 Chief Complaint:: Discharge visit HPI: PCP,Cannabis,Opioid dependence comorbid with MDD. ROS: unremarkable Current Medications: Active Medications Generic Name Dose Route Start Last Admin Trade Name Freq PRN Reason Stop Dose Admin Acetaminophen 650 mg 06/18/16 15:20 06/22/16 15:34 Tylenol - PO 650 mg Q4H PRN Administration PAIN Al Hydroxide/Mg Hydroxide 30 ml 06/18/16 15:20 Mylanta Oral Suspension - PO Q6H PRN DYSPEPSIA Albuterol Sulfate 2 puff 06/18/16 15:22 06/19/16 10:20 Ventolin Hfa Inhaler - IH 2 puff Q4H PRN Administration SHORTNESS OF BREATH Diphenhydramine HCl 50 mg 06/18/16 15:20 Benadryl - PO HSMR1 PRN INSOMNIA Eucalyptus/Menthol/Phenol/Sorbitol 1 each 06/18/16 15:20 Cepastat Lozenge - MM Q4H PRN SORE THROAT Guaifenesin 10 ml 06/18/16 15:20 Robitussin Dm - PO Q6H PRN COUGH Hydroxyzine Pamoate 25 mg 06/18/16 15:20 Vistaril - PO Q4H PRN AGITATION Ibuprofen 400 mg 06/18/16 15:20 07/13/16 07:45 Motrin - PO 400 mg Q6H PRN Administration SEVERE PAIN Lisinopril 20 mg 06/18/16 15:45 07/15/16 10:10 Prinivil PO Not Given DAILY ANDRE Loperamide HCl 4 mg 06/18/16 15:20 Imodium - PO Q6H PRN DIARRHEA Magnesium Citrate 300 ml 06/18/16 15:20 Citroma - PO Q48H PRN CONSTIPATION Magnesium Hydroxide 30 ml 06/18/16 15:20 Milk Of Magnesia - PO DAILY PRN CONSTIPATION Methadone HCl 80 mg/ Methadone 110 mg 07/16/16 06:00 07/16/16 06:30 HCl 30 mg PO 110 mg DAILY@0600 ANDRE Administration Nicotine 14 mg 06/18/16 16:45 07/15/16 10:10 Nicoderm Patch - TD Not Given DAILY ANDRE Nicotine Polacrilex 2 mg 06/18/16 15:20 07/15/16 10:10 Nicorette Gum - BC 2 mg Q2H PRN Administration NICOTINE REPLACEMENT RX Multivit/Folic Acid/Iron 1 tab 06/19/16 10:00 07/15/16 10:09 Vitamins (Sjr) - PO 1 tab DAILY ANDRE Administration Pseudoephedrine/Triprolidine 1 combo 06/18/16 15:20 Actifed - PO TID PRN NASAL CONGESTION Quetiapine Fumarate 400 mg 06/20/16 22:00 07/15/16 21:30 Seroquel - PO 400 mg HS ANDRE Administration Thiamine HCl 100 mg 06/18/16 22:00 07/15/16 21:30 Vitamin B1 - PO 100 mg HS ANDRE Administration Triamterene/HCTZ 1 cap 06/20/16 15:00 07/15/16 10:10 Dyazide 25/37.5mg PO Not Given DAILY ANDRE Current Side Effect: No Lab tests ordered: No Lab tests reviewed: Yes Provider note:: Patient completed this program today.She has met her treatment goals and will continue to address her issues on outpatient basis at [facility].Patient continues to find that current medication ;Seroquel 300 mg po hs helps to reduce his anxiety,mood instability and sleeping difficulties,script for 30 days supply provided. Patient identified areas of difficulties and ways,support ,coping skills to maintain recovery. PAtient is stable for discharge today. Total face to face time:: 30 Mental Status Exam - Mental Status Exam Alert and Oriented to: Time, Place, Person Cognitive Function: Grossly Intact Patient Appearance: Well Groomed Mood: Euthymic Affect: Mood Congruent Patient Behavior: Cooperative Speech Pattern: Clear Voice Loudness: Normal Thought Process: Goal Oriented Thought Disorder: Not Present Hallucinations: Denies Suicidal Ideation: Denies Homicidal Ideation: Denies Insight/Judgement: Fair Sleep: Fair Appetite: Fair Muscle strength/Tone: Normal Gait/Station: Normal Psychiatric Treatment Plan - Problem List (1) Cannabis dependence, uncomplicated Current Visit: Yes (2) Methadone maintenance therapy patient Current Visit: Yes (3) PCP dependence Current Visit: Yes (4) Opioid dependence Current Visit: Yes (5) Major depressive disorder Current Visit: Yes
[2016-07-16] MEDS: PRENATAL VITAMINS W/ FOLIC ACID TABLET (FP) PO SCH (10:13)
[2016-07-16] MEDS: NICOTINE 14 MG/24 HOURS TOPICAL PATCH TD SCH (10:13)
[2016-07-16] MEDS: TRIAMTERENE AND HCTZ - 37.5 MG/25 MG CAPSULE PO SCH (10:13)
[2016-07-16] MEDS: LISINOPRIL 20 MG TABLET (FP) PO SCH (10:13)
[2016-07-16] MEDS: NICOTINE POLACRILEX 2 MG GUM BC PRN (10:15)
== END 2016-07-16 10:20 | disposition home or self-care (01) | DRG 772 ==
LOC: YASAS 10:59 → Y3E 13:32
PROVIDERS: ADMIT Psychiatry & Neurology Psychiatry; ATTEND Psychiatry & Neurology Psychiatry
PROC: HZ42ZZZ Group Counseling for Substance Abuse Treatment, Cognitive-Behavioral (ICD-10-PCS; principal; 2016-07-16)
DX: F11.20 Opioid dependence, uncomplicated (principal); F12.20 Cannabis dependence, uncomplicated; F16.20 Hallucinogen dependence, uncomplicated; F17.210 Nicotine dependence, cigarettes, uncomplicated; F33.9 Major depressive disorder, recurrent, unspecified; J45.909 Unspecified asthma, uncomplicated; I10 Essential (primary) hypertension; Z87.442 Personal history of urinary calculi
CPT/HCPCS: 36415; 80053; 81003; 81015; 85027; 85660; 86593; 93005; 93010

== ENCOUNTER 2018-09-12 09:55 | Inpatient (IN) | payer OTHER ==
[2018-09-12 10:53] VITALS: BMI 30.5
[2018-09-12] MEDS ORDERED: ALBUTEROL SO4 8 GM HFA INHALER IH PRN (12:03)
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
[2018-09-12] MEDS ORDERED: cloNIDine HCL 0.1 MG TABLET PO PRN (12:04)
[2018-09-12] MEDS ORDERED: P-EPHED 60MG/TRIPROLIDI 2.5MG TABLET PO PRN (12:07)
[2018-09-12] MEDS ORDERED: MAGNESIUM CITRATE 300 ML BOTTLE PO PRN (12:07)
[2018-09-12] MEDS ORDERED: MAGNESIUM HYDROX 2400MG/30ML ORAL SUSPENSION 30 ML CUP PO PRN (12:07)
[2018-09-12] MEDS ORDERED: hydrOXYzine PAMOATE 25 MG CAPSULE (FP) PO PRN (12:07)
[2018-09-12] MEDS ORDERED: ACETAMINOPHEN 325 MG TABLET (FP) PO PRN (12:07)
[2018-09-12] MEDS ORDERED: MAG HYDROX/AL HYDROX/SIMETH 30 ML UNIT-DOSE CUP PO PRN (12:07)
[2018-09-12] MEDS ORDERED: MENTHOL/PHENOL 1 EACH UD MM PRN (12:07)
[2018-09-12] MEDS ORDERED: guaiFENesin 200 MG/10 ML 10 ML UNIT-DOSE CUPS PO PRN (12:07)
[2018-09-12] MEDS ORDERED: LISINOPRIL 10 MG TABLET (FP) PO SCH (12:15)
[2018-09-12] MEDS ORDERED: amLODIPine BESYLATE 10 MG TABLET (FP) PO SCH (12:15)
[2018-09-12 15:52] LABS: HEMATOCRIT 37.8 % (32.4-45.2); HEMOGLOBIN 12.4 GM/dL (10.7-15.3); MCH 29.2 pg (25.7-33.7); MCHC 32.9 g/dl (32.0-36.0); MEAN CELL VOLUME 88.8 fl (80-96); MEAN PLT VOLUME 9.4 fl (7.5-11.1); PLATELET COUNT 252 K/MM3 (134-434); RBC 4.25 M/mm3 (3.60-5.2); WHITE BLOOD COUNT 12.7 K/mm3 (4.0-10.0)
[2018-09-12 16:02] LABS: ALBUMIN 3.2 g/dl (3.4-5.0); BILIRUBIN,TOTAL 0.2 mg/dL (0.2-1); BLOOD UREA NITROGEN 21.5 mg/dL (7-18); CALCIUM 8.8 mg/dL (8.5-10.1); CREATININE 0.9 mg/dL (0.55-1.3); POTASSIUM 4.1 mmol/L (3.5-5.1); TOT PROT 6.8 g/dl (6.4-8.2)
[2018-09-12] MEDS: MELATONIN 5 MG TABLETS PO PRN (21:25)
[2018-09-12] MEDS: THIAMINE HCL 100 MG TABLET (FP) PO SCH (21:25)
[2018-09-12] MEDS: NICOTINE POLACRILEX 2 MG GUM BUC PRN (21:26)
[2018-09-13] MEDS ORDERED: METHADONE HCL 10 MG TABLET PO SCH (08:00)
[2018-09-13] MEDS ORDERED: METHADONE HCL 5 MG TABLET ONE (08:10)
[2018-09-13] MEDS ORDERED: METHADONE HCL 10 MG TABLET ONE (08:10)
[2018-09-13] MEDS ORDERED: METHADONE HCL 40 MG DISPERSABLE TABLET ONE (08:11)
[2018-09-13] MEDS: METHADONE 80 MG, METHADONE 30 MG, METHADONE 5 MG PO SCH (08:21)
[2018-09-13] MEDS: PRENATAL VITAMINS W/ FOLIC ACID TABLET (FP) PO SCH (09:01)
[2018-09-13] MEDS: LISINOPRIL 10 MG TABLET (FP) PO SCH (09:01)
[2018-09-13] MEDS: amLODIPine BESYLATE 10 MG TABLET (FP) PO SCH (09:01)
--- NOTE | 2018-09-13 11:43 | PN ---
[facility] Progress Note Note: Patient is referred for elevated white count. Patient denies chills, cough, SOB or any other associated symptoms. She however reports malodorous urine and reports she was recently treated for UTI. She denies dysuria, hematuria, frequency or flank pain. PE Chest: Lungs clear in all ambriz CVS: S1S2, RRR Abd: BS x 4, protuberant, NT Vital Signs 09/13/18 09/13/18 06:58 09:46 Temperature 97.6 F 97 F L Pulse Rate 68 78 Respiratory 20 19 Rate Blood Pressure 186/96 H 176/100 H Abnormal Lab Results 09/12/18 09/12/18 12:15 12:15 WBC 12.7 H RDW 16.0 H Chloride 110 H Anion Gap 5 L BUN 21.5 H Random Glucose 65 L Alkaline Phosphatase 118 H Albumin 3.2 L A/P Leukocytosis U/A C&S Repeat CBC on 09/15
[2018-09-13 15:16] LABS: EPI CELLS 15.1 /HPF (0-5/HPF); HYALINE CASTS 88 /lpf (0-8); URINE APPEARANCE TURBID; URINE BILIRUBIN NEGATIVE (NEGATIVE); URINE COLOR YELLOW; URINE GLUCOSE (UA) NEGATIVE (NEGATIVE); URINE KETONE NEGATIVE (NEGATIVE); URINE LEUK ESTERASE TRACE (NEGATIVE); URINE NITRITE POSITIVE (NEGATIVE); URINE PROTEIN 2+ (NEGATIVE); URINE RBC 11 /hpf (0-4); URINE UROBILINOGEN 0.2 mg/dL (0.2-1.0); URINE WBC 32 /hpf (0-5)
[2018-09-13] MEDS: THIAMINE HCL 100 MG TABLET (FP) PO SCH (21:15)
[2018-09-13] MEDS: MELATONIN 5 MG TABLETS PO PRN (21:17)
[2018-09-13] MEDS: NICOTINE POLACRILEX 2 MG GUM BUC PRN (21:18)
[2018-09-14] MEDS ORDERED: METHADONE HCL 5 MG TABLET ONE (05:55)
[2018-09-14] MEDS ORDERED: METHADONE HCL 40 MG DISPERSABLE TABLET ONE (05:55)
[2018-09-14] MEDS ORDERED: METHADONE HCL 10 MG TABLET ONE (05:55)
[2018-09-14] MEDS: METHADONE 80 MG, METHADONE 30 MG, METHADONE 5 MG PO SCH (06:02)
[2018-09-14] MEDS: LISINOPRIL 10 MG TABLET (FP) PO SCH (10:06)
[2018-09-14] MEDS: PRENATAL VITAMINS W/ FOLIC ACID TABLET (FP) PO SCH (10:06)
[2018-09-14] MEDS: amLODIPine BESYLATE 10 MG TABLET (FP) PO SCH (10:06)
[2018-09-14] MEDS: NICOTINE POLACRILEX 2 MG GUM BUC PRN (10:07)
[2018-09-14 10:13] VITALS: TEMP 97.6
[2018-09-14] MEDS: MELATONIN 5 MG TABLETS PO PRN (21:26)
[2018-09-14] MEDS: THIAMINE HCL 100 MG TABLET (FP) PO SCH (21:26)
[2018-09-15] MEDS ORDERED: METHADONE HCL 5 MG TABLET ONE (05:48)
[2018-09-15] MEDS ORDERED: METHADONE HCL 40 MG DISPERSABLE TABLET ONE (05:49)
[2018-09-15] MEDS ORDERED: METHADONE HCL 10 MG TABLET ONE (05:49)
[2018-09-15] MEDS: METHADONE 80 MG, METHADONE 30 MG, METHADONE 5 MG PO SCH (06:08)
[2018-09-15 09:07] VITALS: BP 151/103; PULSE 93
[2018-09-15] MEDS: LISINOPRIL 10 MG TABLET (FP) PO SCH (09:10)
[2018-09-15] MEDS: PRENATAL VITAMINS W/ FOLIC ACID TABLET (FP) PO SCH (09:10)
[2018-09-15] MEDS: amLODIPine BESYLATE 10 MG TABLET (FP) PO SCH (09:10)
--- NOTE | 2018-09-15 11:23 | PN ---
[facility] Progress Note (SOAP) Subjective: PT DECLINED TO CONTINUE WITH REHAB AND WANTS TO LEAVE TODAY STATING FAMILY ISSUES. PT MET WITH COUNSELOR, IVAN CORTEZ BEFORE EXITING AND HAS BEEN REFERRED TO [facility] AT [address] [place] [address] FOR CD AFTERCARE. ALERT O X 3. DENIES S/H/I. Objective: 09/15/18 11:21 Vital Signs 09/15/18 09/15/18 09/15/18 03:30 07:12 09:06 Temperature 97.6 F Pulse Rate 75 93 H Respiratory 18 18 Rate Blood Pressure 117/81 151/103 H Laboratory Tests 09/12/18 09/12/18 09/12/18 11:46 12:15 12:15 WBC 12.7 H RBC 4.25 Hgb 12.4 Hct 37.8 MCV 88.8 MCH 29.2 MCHC 32.9 RDW 16.0 H Plt Count 252 MPV 9.4 Sodium 143 Potassium 4.1 Chloride 110 H Carbon Dioxide 28 Anion Gap 5 L BUN 21.5 H Creatinine 0.9 Est GFR (CKD-EPI)AfAm 80.55 Est GFR (CKD-EPI)NonAf 69.50 Random Glucose 65 L Calcium 8.8 Total Bilirubin 0.2 AST 18 ALT 26 Alkaline Phosphatase 118 H Total Protein 6.8 Albumin 3.2 L Urine Color Urine Appearance Urine pH Ur Specific [place] Urine Protein Urine Glucose (UA) Urine Ketones Urine Blood Urine Nitrite Urine Bilirubin Urine Urobilinogen Ur Leukocyte Esterase Urine WBC (Auto) Urine RBC (Auto) Urine Casts (Auto) U Epithel Cells (Auto) POC Urine HCG, Qual Negative RPR Titer 09/12/18 09/13/18 12:15 11:46 WBC RBC Hgb Hct MCV MCH MCHC RDW Plt Count MPV Sodium Potassium Chloride Carbon Dioxide Anion Gap BUN Creatinine Est GFR (CKD-EPI)AfAm Est GFR (CKD-EPI)NonAf Random Glucose Calcium Total Bilirubin AST ALT Alkaline Phosphatase Total Protein Albumin Urine Color Yellow Urine Appearance Turbid Urine pH 5.0 Ur Specific [place] 1.026 Urine Protein 2+ H Urine Glucose (UA) Negative Urine Ketones Negative Urine Blood 2+ H Urine Nitrite Positive H Urine Bilirubin Negative Urine Urobilinogen 0.2 Ur Leukocyte Esterase Trace Urine WBC (Auto) 32 Urine RBC (Auto) 11 Urine Casts (Auto) 88 U Epithel Cells (Auto) 15.1 POC Urine HCG, Qual RPR Titer Nonreactive Microbiology 09/13/18 11:46 Urine - Urine Clean Catch Urine Culture - Final Escherichia Coli Home Medications Medication Instructions Recorded Alprazolam [Xanax] 2 mg PO TID 06/18/16 Quetiapine Fumarate [Seroquel -] 400 mg PO HS #30 tablet 07/16/16 Amlodipine Besylate [Norvasc -] 10 mg PO DAILY 10/18/17 Albuterol Sulfate Inhaler - 2 puff IH Q4H PRN #1 inhaler 10/31/17 [Ventolin HFA Inhaler -] Albuterol Sulfate Inhaler - 2 inh IH Q4H PRN #1 inh 09/15/18 [Ventolin HFA Inhaler -] Amlodipine Besylate [Norvasc -] 10 mg PO DAILY #14 tablet 09/15/18 Lisinopril [Prinivil] 10 mg PO DAILY #14 tablet 09/15/18 Sulfamethoxazole/Trimethoprim 1 tab PO BID #20 tablet 09/15/18 [Bactrim Ds -] RX ABOVE ELECTRONICALLY SENT TO PATIENT'S PHARMACY FOR C[employer]ER SUCCESS DIRECTOR. Assessment: 09/15/18 11:22 UTI NAD Plan: PT SIGNED OUT AMA FOLLOW UP WITH CD AFTERCARE RECOMMENDATION. FOLLOW UP WITH PCP DR. MARC BAKER AT [address] [place] [address] FOR MEDICAL MANAGEMENT.
== END 2018-09-15 09:22 | disposition left against medical advice (07) | DRG 770 ==
LOC: YASAS 09:55 → Y3E 12:32
PROVIDERS: ADMIT Neuromusculoskeletal Medicine & OMM; ATTEND Neuromusculoskeletal Medicine & OMM
PROC: HZ42ZZZ Group Counseling for Substance Abuse Treatment, Cognitive-Behavioral (ICD-10-PCS; principal; 2018-09-12)
DX: F11.20 Opioid dependence, uncomplicated (principal); F12.20 Cannabis dependence, uncomplicated; F17.210 Nicotine dependence, cigarettes, uncomplicated; N39.0 Urinary tract infection, site not specified; D72.829 Elevated white blood cell count, unspecified; I10 Essential (primary) hypertension; J45.909 Unspecified asthma, uncomplicated; Z87.442 Personal history of urinary calculi; Z91.5 Personal history of self-harm
CPT/HCPCS: 36415; 80053; 81003; 81025; 85027; 86593; 87086; 87186; J0735